=== PATIENT | female | born 1995 | race African-American/Black ===

== ENCOUNTER 2016-07-10 08:54 | Emergency (ER) | payer SELFPAY ==
[~2016-07-10] VITALS: Ht 175.3 cm; Wt 59.0 kg
[2016-07-10] MEDS ORDERED: IV NORMAL SALINE 1000ML BAG 1,000 ML IV SCH (09:21)
[2016-07-10] MEDS ORDERED: PROMETHAZINE 12.5 MG in IV NORMAL SALINE 50ML 50 ML IV PRN (09:30)
--- NOTE | 2016-07-10 10:16 | PHYS DOC ---
Past Medical History Past Medical History: No Pertinent History Additional Past Medical Histor: Previous miscarriage at about 26weeks. Past Surgical History: TURP Additional Past Surgical Histo: R)foot fx with surgical repair. Additional Information: nonsmoker Alcohol Use: None Drug Use: Marijuana Social History Narrative: Last time smoked was in April. Adult General Chief Complaint Chief Complaint: VOMITING IN HPI HPI Patient is a 21 year old female who presents with nausea and vomiting for 2 weeks. She had a positive home test. Her LMP was 05/13/16. She is Ab1. She had a miscarriage at 26 weeks with her first . She had hyperemesis gravidarum with her first as well. She has had urinary frequency without dysuria. She denies abdominal pain, fever, or vaginal bleeding. She does not have a PCP. She has not yet seen an OB for this . Review of Systems Review of Systems Constitutional: Denies fever or chills. [] GI: Denies abdominal pain, bloody stools or diarrhea. Reports nausea and vomiting. : Denies dysuria, hematuria or vaginal bleeding. Reports urinary frequency. Musculoskeletal: Denies back pain or joint pain. [] Integument: Denies rash or skin lesions. [] Neurologic: Denies headache, focal weakness or sensory changes. [] All systems reviewed and negative unless otherwise stated in the HPI. Current Medications Current Medications Current Medications Medications (Trade) Dose Ordered Sig/Aravind Start Time Stop Time Status Last Admin Dose Admin Promethazine HCl/ Sodium Chloride (Phenergan/Iv Sodium Chloride 0.9% 50ml) 50.5 ml @ 151.5 mls/ hr PRN Q6HRS PRN 07/10/16 09:30 07/10/16 10:05 151.5 MLS/HR Sodium Chloride 1,000 ml @ 100 mls/hr Q10H 07/10/16 09:21 07/10/16 19:20 07/10/16 09:59 100 MLS/HR Allergies Allergies Allergies Coded Allergies Type Severity Reaction Last Updated Verified No Known Drug Allergies 07/10/16 No Physical Exam Physical Exam Constitutional: Well developed, well nourished, no acute distress, non-toxic appearance. [] HENT: Normocephalic, atraumatic, oropharynx moist. [] Eyes: PERRLA, EOMI, conjunctiva normal, no discharge. [] Neck: Normal range of motion, no tenderness, supple, no stridor. [] Cardiovascular: Heart rate regular rhythm, no murmur. [] Lungs & Thorax: Bilateral breath sounds clear to auscultation without wheezes, rales, or rhonchi. [] Abdomen: Bowel sounds normal, soft, no tenderness, no masses, no pulsatile masses. [] Skin: Warm, dry, no erythema, no rash. [] Back: No midline tenderness, no CVA tenderness. [] Extremities: No tenderness, ROM intact, no edema. Distal pulses equal bilaterally. [] Neurologic: Alert and oriented X 3, normal motor function, normal sensory function, no focal deficits noted. [] Psychologic: Affect normal, judgement normal, mood normal. [] Current Patient Data Vital Signs Vital Signs Date Time Temp Pulse Resp B/P Pulse Ox O2 Delivery O2 Flow Rate FiO2 07/10/16 10:01 67 18 114/62 100 Room Air 07/10/16 09:10 98.5 98.5 Lab Values Laboratory Tests Test 07/10/16 09:55 White Blood Count 15.0x10^3/uL (4.0-11.0) H Red Blood Count 4.92x10^6/uL (3.50-5.40) Hemoglobin 13.1g/dL (12.0-15.5) Hematocrit 40.7% (36.0-47.0) Mean Corpuscular Volume 83fL (79-100) Mean Corpuscular Hemoglobin 27pg (25-35) Mean Corpuscular Hemoglobin Concent 32g/dL (31-37) Red Cell Distribution Width 15.0% (11.5-14.5) H Platelet Count 204x10^3/uL (140-400) Neutrophils (%) (Auto) 72% (31-73) Lymphocytes (%) (Auto) 19% (24-48) L Monocytes (%) (Auto) 7% (0-9) Eosinophils (%) (Auto) 1% (0-3) Basophils (%) (Auto) 0% (0-3) Neutrophils # (Auto) 10.8x10^3uL (1.8-7.7) H Lymphocytes # (Auto) 2.9x10^3/uL (1.0-4.8) Monocytes # (Auto) 1.1x10^3/uL (0.0-1.1) Eosinophils # (Auto) 0.1x10^3/uL (0.0-0.7) Basophils # (Auto) 0.0x10^3/uL (0.0-0.2) Maternal Serum HCG Beta Subunit 232303cYA/mL (0-6) H Sodium Level 143mmol/L (136-145) Potassium Level 3.5mmol/L (3.5-5.1) Chloride Level 105mmol/L (98-107) Carbon Dioxide Level 26mmol/L (21-32) Anion Gap 12 (6-14) Blood Urea Nitrogen 9mg/dL (7-20) Creatinine 0.6mg/dL (0.6-1.0) Estimated GFR (Cockcroft-Gault) 125.0 BUN/Creatinine Ratio 15 (6-20) Glucose Level 94mg/dL (70-99) Calcium Level 9.8mg/dL (8.5-10.1) Total Bilirubin 0.3mg/dL (0.2-1.0) Aspartate Amino Transferase (AST) 17U/L (15-37) Alanine Aminotransferase (ALT) 16U/L (14-59) Alkaline Phosphatase 48U/L (46-116) Total Protein 7.6g/dL (6.4-8.2) Albumin 3.8g/dL (3.4-5.0) Albumin/Globulin Ratio 1.0 (1.0-1.7) Laboratory Tests 07/10/16 09:55 Laboratory Tests 07/10/16 09:55 EKG EKG [] Radiology/Procedures Radiology/Procedures REASON: abdominal pain, LMP 05/13/16 PROCEDURE: OB <14 WKS W/TV INDICATION: Vomiting and abdominal pain COMPARISON: None. TECHNIQUE: Grayscale and color ultrasound images uterus and adnexa. Transabdominal and transvaginal images obtained. FINDINGS: Uterus: 9.8 x 7.7 x 6.0 cm. Intrauterine is identified with a heart rate of 175 and a crown-rump length of 37 mm. Right Ovary: 2.8 x 3.2 x 1.7 cm. Flow Identified. Left Ovary: 3.7 x 3.5 x 2.0 cm. Flow Identified. Small free fluid. IMPRESSION: 1. Intrauterine identified with estimated gestational age 10 weeks and 4 days with estimated due date of 02/01/2017. There is a positive heart rate. Recommend routine anomaly screening at 18-22 weeks. Course & Med Decision Making Course & Med Decision Making Pertinent Labs and Imaging studies reviewed. (See chart for details) The patient presents with nausea and vomiting for 2 weeks with positive home test. She is not having any vaginal bleeding. On exam, her abdomen is soft and nontender. She has mild leukocytosis, however this is likely related to vomiting and . She does not have any signs of infection. Ultrasound shows IUP at 10 weeks gestation. Her symptoms improved with IV Phenergan and IV fluids. She is discharged with prescription for Phenergan. She is instructed follow-up with OB for routine care. Return precautions are discussed. She verbalized understanding and agrees with plan. Dragon Disclaimer Dragon Disclaimer This electronic medical record was generated, in whole or in part, using a voice recognition dictation system. Departure Departure Impression: Primary Impression: Hyperemesis gravidarum Disposition: 01 HOME, SELF-CARE Condition: STABLE Referrals: ERIC MENJIVAR Jr, MD Patient Instructions: Diet - Hyperemesis Gravidarum, Hyperemesis Gravidarum Additional Instructions: There were no concerning laboratory abnormalities today. Your ultrasound shows that you are 10 weeks with good heart activity. Please take the prescribed medication as needed for nausea or vomiting. Please follow up with the OB doctor listed below or the OB doctor of your choice for routine care. Return to the emergency department if you have continued vomiting, fever, abdominal pain, vaginal bleeding, or other new or concerning symptoms. Scripts Promethazine Hcl 25 Mg Tablet1 Tab PO PRN Q6HRS PRN NAUSEA/VOMITING #20 TAB Prov:TERE GALARZA 07/10/16 TERE GALARZA Jul 10, 2016 10:16
[2016-07-10 10:25] LABS: CALCIUM 9.8 mg/dL (8.5-10.1); CREATININE 0.6 mg/dL (0.6-1.0); POTASSIUM 3.5 mmol/L (3.5-5.1)
[2016-07-10 10:27] LABS: BASO % 0 % (0-3); EOS % 1 % (0-3); HEMATOCRIT 40.7 % (36.0-47.0); HEMOGLOBIN 13.1 g/dL (12.0-15.5); LYMPH # 2.9 x10^3/uL (1.0-4.8); LYMPH % 19 % (24-48); MEAN CORPUSCULAR HEMOGLOBIN 27 pg (25-35); MEAN CORPUSCULAR HGB CONC 32 g/dL (31-37); MEAN CORPUSCULAR VOLUME 83 fL (79-100); MONO % 7 % (0-9); NEUT % 72 % (31-73); PLATELET COUNT 204 x10^3/uL (140-400); RED BLOOD COUNT 4.92 x10^6/uL (3.50-5.40)
[2016-07-10 10:31] LABS: ALBUMIN 3.8 g/dL (3.4-5.0); TOTAL BILIRUBIN 0.3 mg/dL (0.2-1.0); TOTAL PROTEIN 7.6 g/dL (6.4-8.2)
--- NOTE | 2016-07-10 11:13 | RAD ---
INDICATION: Vomiting and abdominal pain COMPARISON: None. TECHNIQUE: Grayscale and color ultrasound images uterus and adnexa. Transabdominal and transvaginal images obtained. FINDINGS: Uterus: 9.8 x 7.7 x 6.0 cm. Intrauterine is identified with a heart rate of 175 and a crown-rump length of 37 mm. Right Ovary: 2.8 x 3.2 x 1.7 cm. Flow Identified. Left Ovary: 3.7 x 3.5 x 2.0 cm. Flow Identified. Small free fluid. IMPRESSION: 1. Intrauterine identified with estimated gestational age 10 weeks and 4 days with estimated due date of 02/01/2017. There is a positive heart rate. Recommend routine anomaly screening at 18-22 weeks.
[2016-07-10] MEDS ORDERED: PROM25TA10 PO (11:21)
[2016-07-10] MEDS ORDERED: PROCHLORPERAZINE 10 MG/2 ML VIAL. IV ONE (12:15)
[2016-07-10 12:40] VITALS: BP 112/67
== END 2016-07-10 12:41 | disposition home or self-care (01) ==
LOC: ER 08:54
DX: O21.0 Mild hyperemesis gravidarum (principal); F12.10 Cannabis abuse, uncomplicated; F17.200 Nicotine dependence, unspecified, uncomplicated; Z3A.10 10 weeks gestation of pregnancy
CPT/HCPCS: 36415; 76801; 76817; 80053; 84702; 85027; 96361; 96365; 96375; 99285; J0780; J2550; J7030